=== PATIENT | male | born 1925 | race Caucasian/White ===

== ENCOUNTER → 2016-08-02 | Outpatient (CLI) | payer MEDICARE, OTHER ==
[2016-08-02 10:51] LABS: PROTHROMBIN TIME 28.7 SEC (11.4-15.4)
[2016-08-02 11:12] LABS: ANION GAP 12 (5-19); BLOOD UREA NITROGEN 50 mg/dL (7-20); CALCIUM 9.4 mg/dL (8.4-10.2); CARBON DIOXIDE 30 mmol/L (22-30); CHLORIDE 100 mmol/L (98-107); CREATININE RESULT 1.53 mg/dL (0.52-1.25); GLUCOSE 110 mg/dL (75-110); POTASSIUM 4.4 mmol/L (3.6-5.0); SODIUM 141.5 mmol/L (137-145)
== END ==
LOC: OD 09:06
PROVIDERS: ATTEND Internal Medicine Cardiovascular Disease
DX: R06.02 Shortness of breath (principal); Z79.01 Long term (current) use of anticoagulants; Z79.899 Other long term (current) drug therapy
CPT/HCPCS: 36415; 80048; 83880; 85610

== ENCOUNTER → 2016-10-27 | Outpatient (CLI) | payer MEDICARE, OTHER | LOC: OD 09:02 | PROVIDERS: ATTEND Internal Medicine Cardiovascular Disease | DX: Z79.01 Long term (current) use of anticoagulants (principal) ==

== ENCOUNTER → 2017-04-16 | Outpatient (CLI) | payer MEDICARE, OTHER ==
[2017-04-16 11:27] LABS: PROTHROMBIN TIME 34.5 SEC (11.4-15.4)
[2017-04-16 11:43] LABS: ANION GAP 13 (5-19); BLOOD UREA NITROGEN 82 mg/dL (7-20); CALCIUM 9.1 mg/dL (8.4-10.2); CARBON DIOXIDE 27 mmol/L (22-30); CHLORIDE 101 mmol/L (98-107); CHOLESTEROL 53.65 mg/dL (0-200); CREATININE RESULT 2.49 mg/dL (0.52-1.25); Direct HDL 26 mg/dL (>40); GLUCOSE 101 mg/dL (75-110); POTASSIUM 4.7 mmol/L (3.6-5.0); SODIUM 141.1 mmol/L (137-145); TRIGLYCERIDES 61 mg/dL (<150)
[2017-04-16 11:57] LABS: DIRECT LDL < 30 mg/dL (<100)
== END ==
LOC: OD 09:51
PROVIDERS: ATTEND Internal Medicine Cardiovascular Disease
DX: R06.02 Shortness of breath (principal); E87.5 Hyperkalemia; E78.00 Pure hypercholesterolemia, unspecified; I48.2 Chronic atrial fibrillation
CPT/HCPCS: 36415; 80048; 80061; 83880; 85610

== ENCOUNTER → 2017-06-07 | Outpatient (CLI) | payer MEDICARE, OTHER ==
[2017-06-07 11:15] LABS: PROTHROMBIN TIME 29.8 SEC (11.4-15.4)
[2017-06-07 11:19] LABS: ANION GAP 10 (5-19); BLOOD UREA NITROGEN 79 mg/dL (7-20); CALCIUM 9.1 mg/dL (8.4-10.2); CARBON DIOXIDE 29 mmol/L (22-30); CHLORIDE 101 mmol/L (98-107); CREATININE RESULT 2.32 mg/dL (0.52-1.25); GLUCOSE 68 mg/dL (75-110); POTASSIUM 5.1 mmol/L (3.6-5.0); SODIUM 140.4 mmol/L (137-145)
== END ==
LOC: OD 09:57
PROVIDERS: ATTEND Internal Medicine Cardiovascular Disease
DX: N18.3 Chronic kidney disease, stage 3 (moderate) (principal); R06.02 Shortness of breath; Z79.01 Long term (current) use of anticoagulants; Z79.899 Other long term (current) drug therapy
CPT/HCPCS: 36415; 80048; 83880; 85610

== ENCOUNTER → 2017-09-06 | Outpatient (CLI) | payer MEDICARE, OTHER ==
[2017-09-06 11:28] LABS: INTERNATIONAL RATION (INR) 2.11; PROTHROMBIN TIME 24.8 SEC (11.4-15.4)
[2017-09-06 11:43] LABS: ANION GAP 9 (5-19); BLOOD UREA NITROGEN 80 mg/dL (7-20); CALCIUM 9.5 mg/dL (8.4-10.2); CARBON DIOXIDE 27 mmol/L (22-30); CHLORIDE 104 mmol/L (98-107); GLUCOSE 254 mg/dL (75-110); SODIUM 140.3 mmol/L (137-145)
[2017-09-06 11:49] LABS: POTASSIUM 6.3 mmol/L (3.6-5.0)
== END ==
LOC: OD 10:24
PROVIDERS: ATTEND Internal Medicine Cardiovascular Disease
DX: E03.9 Hypothyroidism, unspecified (principal); N18.3 Chronic kidney disease, stage 3 (moderate); R06.02 Shortness of breath; Z79.01 Long term (current) use of anticoagulants; Z79.899 Other long term (current) drug therapy
CPT/HCPCS: 36415; 80048; 83880; 85610

== ENCOUNTER → 2017-09-20 | Outpatient (CLI) | payer MEDICARE, OTHER ==
[2017-09-20 10:55] LABS: HEMATOCRIT 36.1 % (37.9-51.0); HEMOGLOBIN 11.8 g/dL (13.5-17.0); MEAN CORPUSCULAR HEMOGLOBIN 34.8 pg (27.0-33.4); MEAN CORPUSCULAR HGB CONC 32.7 g/dL (32.0-36.0); MEAN CORPUSCULAR VOLUME 106 fl (80-97); RED CELL DISTRIBUTION WIDTH 16.9 % (11.5-14.0); WHITE BLOOD COUNT 4.7 10^3/uL (4.0-10.5)
[2017-09-20 10:56] LABS: INTERNATIONAL RATION (INR) 2.22; PROTHROMBIN TIME 25.8 SEC (11.4-15.4)
[2017-09-20 11:12] LABS: ANION GAP 5 (5-19); BLOOD UREA NITROGEN 67 mg/dL (7-20); CALCIUM 9.6 mg/dL (8.4-10.2); CARBON DIOXIDE 34 mmol/L (22-30); CHLORIDE 102 mmol/L (98-107); GLUCOSE 98 mg/dL (75-110); POTASSIUM 4.8 mmol/L (3.6-5.0); SODIUM 141.2 mmol/L (137-145)
[2017-09-20 11:14] LABS: ANION GAP 5 (5-19); BLOOD UREA NITROGEN 67 mg/dL (7-20); CALCIUM 9.6 mg/dL (8.4-10.2); CARBON DIOXIDE 34 mmol/L (22-30); CHLORIDE 102 mmol/L (98-107); GLUCOSE 98 mg/dL (75-110); POTASSIUM 4.8 mmol/L (3.6-5.0); SODIUM 141.2 mmol/L (137-145)
[2017-09-20 11:20] LABS: PLATELET COUNT 82 10^3/uL (150-450)
== END ==
LOC: OD 09:41
PROVIDERS: ATTEND Internal Medicine Cardiovascular Disease
DX: N18.3 Chronic kidney disease, stage 3 (moderate) (principal); D64.9 Anemia, unspecified; I50.9 Heart failure, unspecified; R06.02 Shortness of breath; E11.9 Type 2 diabetes mellitus without complications; E87.5 Hyperkalemia; I48.2 Chronic atrial fibrillation
CPT/HCPCS: 36415; 80048; 83880; 85027; 85610